=== PATIENT | female | born 1990 | race Caucasian/White ===

== ENCOUNTER → 2020-12-26 | Outpatient (CLI) | payer OTHER, BC ==
[~2020-12-26] MED LIST: BUPROPION XL150 MG PO; DOXYCYCLINE HY100 MG PO; ESTRADIOL1 EAC4 TD; IBU800 MG PO; IBUPROFEN600 MG PO; MEDROL DOSEPAK 24 MG PO; ONDANSETRON ODT8 MG PO; RISPERDAL 0.20.25 MG PO; TAMIFLU75 MG PO; VENTOLIN HFA 66.7 GM INH; VIBRAMYCIN100 MG PO; ZOLOFT50 MG PO
== END ==
LOC: EXRD 08:43
DX: K76.0 Fatty (change of) liver, not elsewhere classified (principal); E66.01 Morbid (severe) obesity due to excess calories
CPT/HCPCS: 36415; 76700; 83970; 84134; 84425; G0480

== ENCOUNTER → 2020-12-26 | Outpatient (CLI) | payer OTHER, BC ==
[2020-12-27 07:13] LABS: PREALBUMIN 35 mg/dL (14-35); VITAMIN D, 25-HYDROXY 29.8 ng/mL (30.0-100.0)
[2020-12-29 13:15] LABS: COTININE <1.0 ng/mL (.); NICOTINE <1.0 ng/mL (.)
== END ==
LOC: LAB 10:22
PROVIDERS: Surgery
DX: Z01.812 Encounter for preprocedural laboratory examination (principal); E66.01 Morbid (severe) obesity due to excess calories; K76.0 Fatty (change of) liver, not elsewhere classified; E55.9 Vitamin D deficiency, unspecified; Z87.891 Personal history of nicotine dependence
CPT/HCPCS: 36415; 83970; 84134; 84425; G0480

== ENCOUNTER → 2021-03-21 | Outpatient (CLI) | payer OTHER, BC ==
[2021-03-21 16:05] LABS: HEMOGLOBIN 13.7 gm/dl (12.3-15.3); RED BLOOD COUNT 4.55 M/UL (4.00-5.10); WHITE BLOOD COUNT 5.1 K/UL (4.5-11.0)
[2021-03-21 16:19] LABS: BUN/CREATININE RATIO 11 (0-10)
[2021-03-22 09:14] LABS: VITAMIN D, 25-HYDROXY 57.1 ng/mL (30.0-100.0)
== END ==
LOC: LAB 15:01
PROVIDERS: Surgery
DX: E46 Unspecified protein-calorie malnutrition (principal); E55.9 Vitamin D deficiency, unspecified; Z98.84 Bariatric surgery status
CPT/HCPCS: 36415; 80053; 80061; 82607; 82746; 84134; 84425; 85027

== ENCOUNTER → 2021-05-22 | Outpatient (CLI) | payer OTHER, BC ==
[2021-05-22 09:34] LABS: RED BLOOD COUNT 4.27 M/UL (4.00-5.10); WHITE BLOOD COUNT 5.5 K/UL (4.5-11.0)
[2021-05-22 10:07] LABS: BUN/CREATININE RATIO 13 (0-10)
[2021-05-23 08:15] LABS: VITAMIN D, 25-HYDROXY 97.3 ng/mL (30.0-100.0)
== END ==
LOC: LAB 09:06
PROVIDERS: Surgery
DX: E46 Unspecified protein-calorie malnutrition (principal); E55.9 Vitamin D deficiency, unspecified; Z98.84 Bariatric surgery status
CPT/HCPCS: 36415; 80053; 80061; 82607; 82746; 84134; 84425; 85027

== ENCOUNTER → 2021-10-12 | Outpatient (CLI) | payer BC | LOC: CT 09-28 12:00 | DX: R19.00 Intra-abdominal and pelvic swelling, mass and lump, unspecified site (principal) | CPT/HCPCS: Q9967 ==